=== PATIENT | male | born 1990 | race Caucasian/White ===

== ENCOUNTER 2016-11-11 22:36 | Emergency (ER) | payer OTHER ==
[2016-11-11] MEDS ORDERED: AMOXICILLIN 250 MG CAPSULE PO STA (23:05)
[2016-11-11] MEDS ORDERED: HYDROcod/ACET 5/325 Prepack 6 PO STA (23:05)
[2016-11-11] MEDS ORDERED: HYDROcod/ACET 5/325 Prepack 6 PO ONE (23:08)
[2016-11-11] MEDS ORDERED: AMOXICILLIN 250 MG CAPSULE PO ONE (23:08)
== END 2016-11-11 23:14 | disposition home or self-care (01) ==
DX: H66.93 Otitis media, unspecified, bilateral (principal)
CPT/HCPCS: 99283; A9270

== ENCOUNTER 2017-02-23 13:08 | Emergency (ER) | payer OTHER ==
[2017-02-23 13:21] VITALS: BP 106/69
--- NOTE | 2017-02-23 13:28 | ED Physician Documentation ---
PD HPI UPPER EXT INJURY - Stated complaint Stated Complaint: HAND LAC - Chief complaint Chief Complaint: Laceration - History obtained from History obtained from: Patient - History of Present Illness Location: Left, Finger (index) Type of injury: Laceration Where injury occurred: Work Timing - onset: Today Timing - duration: Hours (2) Timing - details: Abrupt onset Pain level max: 4 Pain level now: 3 Improved by: Rest, Immobilization Worsened by: Moving, Palpating Associated symptoms: No: Weakness, Numbness, Tingling, Swelling Contributing factors: No: Anticoagulated, Prior ortho surgery Similar symptoms before: Has not had sx before Recently seen: Clinic (sent from [facility] for tendon laceration) - Additonal information Additional information: Pt is right handed. Review of Systems Constitutional: denies: Fever, Chills GI: denies: Vomiting PD PAST MEDICAL HISTORY - Past Medical History Past Medical History: No Cardiovascular: None Respiratory: None Neuro: None Endocrine/Autoimmune: None GI: None : None HEENT: None Psych: None Musculoskeletal: None Derm: None - Past Surgical History Past Surgical History: No - Present Medications Home Medications: Ambulatory Orders Medication Instructions Recorded Confirmed Ibuprofen [Motrin] 800 mg PO Q8H PRN #30 tablet 11/11/16 02/23/17 Cephalexin [Keflex] 500 mg PO Q6H #28 capsule 02/23/17 - Allergies Allergies/Adverse Reactions: Allergies Allergy/AdvReac Type Severity Reaction Status Date / Time No Known Drug Allergies Allergy Verified 11/11/16 22:46 - Social History Does the pt smoke?: No Smoking Status: Never smoker Does the pt drink ETOH?: No Does the pt have substance abuse?: No - Immunizations Immunizations are current?: Yes Immunizations: TDAP current <10years PD ED PE NORMAL - Vitals Vital signs reviewed: Yes - General General: Alert and oriented X 3 - Neck Neck: Supple, no meningeal sign - Derm Derm: Warm and dry - Extremities Extremities: Other (L index finger dorsal aspect MCP joint with transection of the extensor tendon. NVI. ) - Neuro Neuro: Alert and oriented X 3 - Psych Psych: Normal mood, Normal affect Results - Vitals Vitals: Vital Signs - 24 hr 02/23/17 13:13 Temperature 36.6 C Heart Rate 65 Respiratory 14 Rate Blood Pressure 106/69 O2 Saturation 99 Oxygen O2 Source Room air Procedures - Laceration (location) L index finger Length in cm: 1 Wound type: Linear, Into muscle, Clean Neurovascular status: Sensory intact, Motor intact, Vascular intact Tendon involvement: Tendon Injury (90% transection) Wound Preparation: Irrigated copiously NS Skin layer closure: Nylon, Interrupted, Size #-0 - enter number (4), Sutures - enter # (1) Other: Patient tolerated well, No complications, Neurovascular intact, Dressing applied, Tetanus UTD Complexity: Simple PD MEDICAL DECISION MAKING - ED course Complexity details: considered differential, d/w patient, d/w emergency management consultant ED course: 1330 - D/w orthopedics here (Dr. Vazquez) and recommends that I call [facility] for this patient. 1400 - D/w Dr. Keller ([facility] orth[facility]) And he asked that we splint the patient, irrigated the wound and place [address]. He will see the patient in the morning at 11 AM for repair. Also asked that we place the patient on Keflex. Patient counseled regarding signs and symptoms for which I believe and urgent re-evaluation would be necessary. Patient with good understanding of and agreement to plan and is comfortable going home at this time This document was made in part using voice recognition software. While efforts are made to proofread this document, sound alike and grammatical errors may occur. Departure - Departure Disposition: 01 Home, Self Care Clinical Impression: Extensor tendon laceration of finger with open wound Qualifiers: Encounter type: initial encounter Qualified Code(s): S66.529A - Laceration of intrinsic muscle, fascia and tendon of unspecified finger at wrist and hand level, initial encounter Condition: Good Instructions: ED Laceration Tendon Follow-Up: Juanito Keller, DO [Provider Admit Priv/Credential] - Tomorrow (at 11am) Prescriptions: Cephalexin [Keflex] 500 mg PO Q6H #28 capsule Comments: [place] [address] Keller will see you and fix the tendon. Keep the splint on until he sees you Discharge Date/Time: 02/23/17 14:37
[2017-02-23] MEDS ORDERED: CEPHALEXIN 250 MG CAPSULE PO STA (14:09)
[2017-02-23] MEDS ORDERED: CEPHALEXIN 250 MG CAPSULE PO ONE (14:16)
== END 2017-02-23 14:37 | disposition home or self-care (01) ==
LOC: ED 13:08
DX: S66.321A Laceration of extensor muscle, fascia and tendon of left index finger at wrist and hand level, initial encounter (principal); S61.211A Laceration without foreign body of left index finger without damage to nail, initial encounter; W45.8XXA Other foreign body or object entering through skin, initial encounter; Y92.89 Other specified places as the place of occurrence of the external cause; Y99.0 Civilian activity done for income or pay
CPT/HCPCS: 12001; 99283; A9270

== ENCOUNTER 2017-02-26 07:44 | Day surgery (SDC) | payer OTHER ==
[~2017-02-26 07:44] MED LIST: ACETAMINOPHEN 1,000 MG/100 ML 100 ML IV ONE; CELECOXIB 100 MG CAPSULE PO ONE; ceFAZolin 2 GM/50 ML 50 ML IV ONE
[2017-02-26] MEDS ORDERED: LACTATED RINGERS 1,000 ML IV ONE ×2 (07:55→11:36)
[2017-02-26] MEDS ORDERED: MIDAZOLAM 2 MG/2 ML VIAL IVP ONE (10:15)
[2017-02-26] MEDS ORDERED: DEXAMETHASONE 4 MG/ML VIAL IVP ONE (10:15)
[2017-02-26] MEDS ORDERED: LIDOCAINE-MPF 2% 5 ML VIAL IM ONE (10:15)
[2017-02-26] MEDS ORDERED: ONDANSETRON 4 MG/2 ML VIAL IVP ONE (10:15)
[2017-02-26] MEDS ORDERED: fentaNYL 100 MCG/2 ML VIAL IVP ONE (10:15)
[2017-02-26] MEDS ORDERED: PROPOFOL 200 MG/20 ML VIAL IVP ONE (10:15)
[2017-02-26] MEDS ORDERED: BUPIVACAINE 0.25% PF 30 ML VIAL SUBQ ONE ×2 (10:24)
[2017-02-26 13:05] VITALS: BP 128/65
--- NOTE | 2017-02-26 16:06 | OPERATIVE REPORT ---
DATE OF SURGERY: 02/26/2017 00:00:00 IDENTIFICATION NUMBER: [id number]. PREOPERATIVE DIAGNOSIS: Left index finger zone 5 extensor tendon injury. POSTOPERATIVE DIAGNOSIS: Left zone 5 extensor tendon and sagittal band laceration. OPERATIVE PROCEDURE PERFORMED: Left index finger zone 5 exploration, irrigation and debridement, and repair of extensor tendon and sagittal band. OPERATIVE SURGEON: Commander Juanito Keller, [employer] SUPERVISOR [employer] REMOVAL SURGEON: Lieutenant Commander Laura Villalobos[employer], [employer]. ANESTHESIA PROVIDER: Robbin Green CRNA. ANESTHESIA TECHNIQUE: General anesthesia via LMA with local anesthesia at the injury site. CIRCULATING REGISTERED NURSES: Jean Bailey and Hannah Yanes. BAKING POWDER MIXER: Mick Phyllis Parrish. START TIME: 1021. END TIME: 1109. INJECTED SUBSTANCES: Includes Marcaine 0.25% plain 5.5 mL. INTRAVENOUS FLUIDS: 900 mL lactated Ringer's. PREOPERATIVE ANTIBIOTICS: Ancef 2 grams. The patient is also taking oral Keflex prescribed from the emergency room prior to the surgery. PREOPERATIVE PREP: ChloraPrep. The patient had bilateral LITZY hose and foot pumps in place and functioning prior to induction of anesthesia. TOURNIQUET TIME: 45 minutes at 250 mmHg. FINAL COUNTS: Correct. SUTURES: The repair sutures used include 4-0 Ethibond in a modified Mendoza core suture accompanied by 5-0 Prolene cross suture. COMPLICATIONS: None. INDICATIONS FOR SURGERY: This is a 26-year-old active [facility] [place] [employer] right hand dominant male who had an acute left dorsal zone 5 index finger laceration with concern for possible extensor tendon injury sustained 02/23/2017 while he was cleaning a brass plaque at work and caught the edge on the dorsal aspect of his metacarpophalangeal area. He was initially seen at [facility] and had irrigation and debridement and was sent to the emergency room where further exploration was performed with concern for full thickness extensor tendon laceration, as well as repeat irrigation and debridement, IV antibiotics, and then placed on oral antibiotics. He then presented to the [facility] the following day with clinical exam and imaging studies suspicious for a zone 5 extensor tendon injury. He was counseled as far as the findings and options for operative versus nonoperative management, including the risks, benefits, alternatives and expectations to both operative and nonoperative management. He preferred to have surgery, received command authorization for surgery. On the day of surgery, identified the operative site to be his left index finger , was initialed by the operative surgeon. He was then taken back to the operating room, placed in the supine position and underwent general anesthesia via LMA. After adequate anesthetic control, the patient's bony prominences were well-padded. He had a tourniquet placed to the left upper brachium and then underwent ChloraPrep and standard sterile draping, followed by surgical pause to confirm the proper patient, procedure, operative site, position, prophylactic antibiotics, surgical initials, and surgical instrumentation in accordance with universal protocol procedure verification. Following this, the one retained suture was removed and additional ChloraPrep was then applied to the exposed operative skin, allowed to dry for 3 minutes. Following this, the laceration site was opened and irrigated, and the wound then extended both proximally and distally with exploration revealing a full-thickness extensor tendon laceration including extension into the radial aspect of the sagittal band over zone 5. There was no violation of the articular capsule. Further irrigation and debridement was then performed, followed by repair of the extensor tendon using 4-0 Ethibond modified Mendoza core sutures and then oversewed with 5-0 Prolene cross suture with the finger in extension and maintained in extension. The wound was then copiously irrigated again and the incision site closed with 4-0 nylon. This was performed under tourniquet after Esmarch exsanguination. The wound was then injected with 0.25% Marcaine plain followed by Xeroform, sterile plain gauze, sterile Webril, a volar base splint with the wrist in extension, metacarpophalangeal joints in slight flexion and PIP and DIP joints in extension. The tourniquet was then deflated. The cap refill was less than 2 seconds with warm, pink fingers. The patient was then extubated in the operating room, taken to the recovery room in stable condition , tolerated the procedure well. The patient's was attempted to be notified by telephone, a message was then left for her. The patient does have my cell phone number if he has any issues after hours over the weekend, he may notify me. He will start zone 5 extensor tendon protocol in the next 3 weeks. Edited and electronically signed: CDR Juanito Keller USN [id number] JOB #: [id number] EXT JOB #:[id number]
== END 2017-02-26 07:45 | disposition home or self-care (01) ==
LOC: SDS 07:44
PROVIDERS: ATTEND Orthopaedic Surgery
PROC: 0LQ80ZZ Repair Left Hand Tendon, Open Approach (ICD-10-PCS; principal; 2017-02-26 09:15)
DX: S66.321A Laceration of extensor muscle, fascia and tendon of left index finger at wrist and hand level, initial encounter (principal); Z87.891 Personal history of nicotine dependence
CPT/HCPCS: 26418; A9270; J0131; J0690; J7120